=== PATIENT | male | born 1995 | race Caucasian/White ===

== ENCOUNTER 2019-10-31 12:49 | Outpatient (CLI) | payer OTHER, SELFPAY ==
[2019-10-31 12:58] LABS: Volume Semen 6 (2-5)
[2019-10-31 12:59] LABS: Sperm Progressive Motility 80 % (31-34); Viscosity Semen High Viscosity
[2019-10-31 13:00] LABS: Sperm Immotility 10 % (50-60); Sperm Non-Progressive Motility 10 % (5-10)
[2019-10-31 13:01] LABS: Epithelial Count Semen 0-4 /hpf; RBC Semen 0
[2019-10-31 13:12] LABS: PH Semen 9.5 (7.0-8.0)
[2019-10-31 13:51] LABS: Side 1 11; Side 2 11
[2019-10-31 13:52] LABS: Side WITHIN 10% 0
[2019-10-31 13:54] LABS: Pathology Referral Yes
== END 2019-10-31 12:50 | disposition home or self-care (01) ==
LOC: LAB 12:53
PROVIDERS: Family Provider Family Medicine; Visit Provider Obstetrics & Gynecology
DX: Z31.9 Encounter for procreative management, unspecified (principal)
CPT/HCPCS: 80500; 89320

== ENCOUNTER 2020-03-06 13:01 | Outpatient (CLI) | payer OTHER, SELFPAY ==
[2020-03-06 13:12] LABS: Viscosity Semen Normal
[2020-03-06 13:23] LABS: Sperm Progressive Motility 60 % (31-34)
[2020-03-06 13:24] LABS: Sperm Immotility 30 % (50-60); Sperm Non-Progressive Motility 10 % (5-10); White Blood Count Semen 0-4 /hpf
[2020-03-06 13:26] LABS: Pathology Referral Yes
[2020-03-06 14:07] LABS: Side 1 10; Side 2 12
== END 2020-03-06 13:02 | disposition home or self-care (01) ==
PROVIDERS: PCP Family Medicine; Visit Provider Urology
DX: N46.11 Organic oligospermia (principal)
CPT/HCPCS: 80500; 89320

== ENCOUNTER 2020-03-12 14:26 | Outpatient (CLI) | payer OTHER, SELFPAY ==
[2020-03-12 15:33] LABS: Testosterone Total 784.9 ng/dL (249-836)
[2020-03-12 23:51] LABS: Follicle Stimulating Hormone 8.6 mIU/mL (1.5-12.4); Luteinizing Hormone 11.1 mIU/mL (1.7-8.6)
== END 2020-03-12 14:27 | disposition home or self-care (01) ==
LOC: LAB 14:38
PROVIDERS: PCP Family Medicine; Visit Provider Urology
DX: N46.11 Organic oligospermia (principal)
CPT/HCPCS: 83001; 83002; 84403

== ENCOUNTER → 2020-03-13 09:10 | Outpatient (BNVA) | payer OTHER, SELFPAY | PROVIDERS: PCP Family Medicine; Visit Provider Urology | DX: N46.11 Organic oligospermia (principal); I86.1 Scrotal varices | CPT/HCPCS: 81001 ==

== ENCOUNTER → 2024-05-23 11:27 | Outpatient (BNVA) | payer OTHER, SELFPAY | PROVIDERS: PCP Family Medicine; Visit Provider Registered Nurse | DX: R79.89 Other specified abnormal findings of blood chemistry (principal) | CPT/HCPCS: 84402; 84403 ==